=== PATIENT | male | born 1940 | race Caucasian/White ===

== ENCOUNTER 2018-05-11 08:52 | Emergency (ER) | payer MEDICARE ==
[~2018-05-11] VITALS: Ht 172.7 cm; Wt 98.0 kg
[~2018-05-11 08:52] MED LIST: ACETAMINOPHEN325 M1 PO; ALPRAZOLAM0.5 M1 PO; AMOXICILLIN250 MG PO; ASPIR 8181 MG PO; BACTRIM DS TAB1 EACH PO; BUMETANIDE1 MG PO; BUSPIRONE HCL5 MG PO; CLINDAMYCIN HC300 MG PO; CLOPIDOGREL75 MG PO; CLOTRIMAZOLE-BE15 GM TOP; COUMADIN3 MG PO; FLONASE NS; FLONASE16 GM; FLUCONAZOLE100 MG PO; LAMISIL250 MG PO; LASIX20 MG PO; LEVAQUIN500 MG PO; LOSARTAN POTAS100 MG PO; LOTRISONE CREAM15 GM TOP; LOVENOX60 MG/0.6 SC; MACROBID 100 M100 MG PO; METOPROLOL TART25 MG PO; NITROGLYCERIN0.4 MG SL; NORCO 7.5-3251 EACH PO; PRAVASTATIN SOD40 MG PO; SENOKOT8.6 MG PO; SMZ/TMP DS 800-160 PO; TAMSULOSIN HCL0.4 MG PO; TERAZOSIN HCL5 MG PO; TRAMADOL PO; TYLENOL WITH C1 EACH PO; ULTRAM 50MG50 MG PO; WARFARIN SODIUM3 MG PO; WARFARIN SODIUM5 MG PO; XARELTO20 MG PO
[2018-05-11 10:24] LABS: CLARITY,URINE SL CLOUDY (CLEAR); COLOR,URINE YELLOW (YELLOW)
[2018-05-11 10:25] LABS: BACTERIA,URINE MODERATE /HPF; BILIRUBIN,URINE NEGATIVE (NEGATIVE); KETONES,URINE NEGATIVE (NEGATIVE); LEUKOCYTE ESTERASE ,URINE 2+ (NEGATIVE); NITRITE,URINE POSITIVE (NEGATIVE); PROTEIN,URINE DIPSTICK 1+ (NEGATIVE); RBC,URINE 21-50 /HPF (0-5); URINE UROBILINOGEN 0.2 mg/dL (0.2 - 1); WBC,URINE (MAN) >50 /HPF (0-5)
[2018-05-11] MEDS ORDERED: CEFTRIAXONE SOD 1 GM VIAL IM NR (10:45)
[2018-05-11 10:53] VITALS: BP 124/69
[2018-05-11] MEDS ORDERED: LIDOCAINE 1% 5ML-MPF INJ ONE (11:00)
[2018-05-11] MEDS ORDERED: LIDOCAINE HCL 1% 2 ML AMP ONE (11:07)
== END 2018-05-11 11:22 | disposition home or self-care (01) ==
LOC: ER 08:52
DX: R33.9 Retention of urine, unspecified (principal); N30.21 Other chronic cystitis with hematuria; N40.1 Benign prostatic hyperplasia with lower urinary tract symptoms
CPT/HCPCS: 81001; 87086; 87186; 99283; J0696; J2001

== ENCOUNTER 2018-08-22 13:59 | Emergency (ER) | payer MEDICARE ==
[~2018-08-22] VITALS: Ht 172.7 cm; Wt 101.2 kg
[2018-08-22 15:26] LABS: BILIRUBIN,URINE NEGATIVE (NEGATIVE); CLARITY,URINE HAZY (CLEAR); COLOR,URINE YELLOW (YELLOW); KETONES,URINE NEGATIVE (NEGATIVE); LEUKOCYTE ESTERASE ,URINE 2+ (NEGATIVE); NITRITE,URINE POSITIVE (NEGATIVE); PROTEIN,URINE DIPSTICK 2+ (NEGATIVE); URINE UROBILINOGEN 0.2 mg/dL (0.2 - 1)
[2018-08-22 15:41] LABS: WBC,URINE (MAN) 21-50 /HPF (0-5)
[2018-08-22 15:42] LABS: AMORPHOUS SEDIMENT,URINE FEW (FEW); BACTERIA,URINE MODERATE /HPF
[2018-08-22] MEDS ORDERED: CEFTRIAXONE SOD 1 GM VIAL IM NR (16:00)
[2018-08-22] MEDS ORDERED: LIDOCAINE HCL 1% LOCAL INJ 20 ML VIAL ONE (16:30)
[2018-08-22] MEDS ORDERED: LIDOCAINE 1% 5ML-MPF INJ ONE (16:30)
[2018-08-22 16:48] VITALS: BP 110/61
== END 2018-08-22 17:05 | disposition home or self-care (01) ==
LOC: ER 13:59
DX: R33.9 Retention of urine, unspecified (principal); N30.01 Acute cystitis with hematuria
CPT/HCPCS: 81001; 87086; 87186; 99283; J0696; J2001

== ENCOUNTER 2020-09-02 16:55 | Inpatient (IN) | payer MEDICARE ==
[~2020-09-02] VITALS: Ht 172.7 cm; Wt 93.9 kg
[2020-09-06 08:29] VITALS: BP 114/69
[2020-09-06] MEDS ORDERED: GABAPENTIN300 MG PO (09:08)
[2020-09-06] MEDS ORDERED: HIPREX1 GM PO (09:08)
[2020-09-06] MEDS ORDERED: ELIQUIS5 M1 PO (09:08)
[2020-09-06] MEDS ORDERED: LISINOPRIL10 MG PO (09:08)
[2020-09-06] MEDS ORDERED: ALEVE220 MG PO (09:12)
[2020-09-06 09:55] LABS: BASOPHILS % 0.4 % (0.0-1.0); EOSINOPHILS # (AUTO) 0.2 (0.0-0.4); EOSINOPHILS % 5.1 % (0.0-6.0); HEMATOCRIT 36.2 % (38.2-49.6); HEMOGLOBIN 11.3 g/dL (14.0-18.0); LYMPHOCYTES # (AUTO) 1.1 (1.0-3.2); LYMPHOCYTES % 23.7 % (18.0-39.1); MEAN CORPUSCULAR HEMOGLOBIN 26.3 pg (28-32); MEAN CORPUSCULAR HGB CONC 31.2 g/dL (31-35); MEAN CORPUSCULAR VOLUME 84.4 fL (81-99); MONOCYTES # (AUTO) 0.4 (0.2-0.8); MONOCYTES % 9.6 % (4.4-11.3); NEUTROPHILS # (AUTO) 2.7 (2.1-6.9); PLATELET COUNT 131 x10e3/uL (140-360); RED BLOOD COUNT 4.29 x10e6/uL (4.3-5.7); RED CELL DISTRIBUTION WIDTH 14.6 % (11.7-14.4)
[2020-09-06] MEDS ORDERED: VANCOMYCIN 1GM/NS 250 ML 250 ML IV SCH (10:00)
[2020-09-06 10:13] LABS: ALANINE AMINOTRANSFERASE 18 IU/L (0-55); ALBUMIN/GLOBULIN RATIO 1.4 (0.8-2.0); ALKALINE PHOSPHATASE 56 IU/L (40-150); ANION GAP 13.8 mmol/L (8-16); BLOOD UREA NITROGEN 18 mg/dL (7-26); BUN/CREATININE RATIO 16 (6-25); CALCIUM 9.5 mg/dL (8.4-10.2); CARBON DIOXIDE 27 mmol/L (22-29); CHLORIDE 104 mmol/L (98-107); CREATININE, SERUM 1.14 mg/dL (0.72-1.25); EST GLOMERULAR FILTRATION RATE > 60 ML/MIN (60-); GLUCOSE 128 mg/dL (74-118); POTASSIUM 3.8 mmol/L (3.5-5.1); SODIUM 141 mmol/L (136-145)
[2020-09-06 10:18] VITALS: BP 114/69
[2020-09-06 12:17] VITALS: BP 125/74
[2020-09-06] MEDS: CEFEPIME 1GM/NS 0.9% 50 ML 50 ML IV SCH (12:28)
[2020-09-06] MEDS ORDERED: SODIUM CHLORIDE 0.9% 250ML 250 ML ONE (12:35)
[2020-09-06 16:06] VITALS: BP 135/74
[2020-09-06] MEDS: GABAPENTIN 300 MG CAP PO SCH ×2 (16:19→20:09)
[2020-09-06] MEDS: METOPROLOL TARTRATE 25 MG TAB PO SCH (16:55)
[2020-09-06] MEDS: FUROSEMIDE 40 MG TAB PO SCH (20:09)
[2020-09-06] MEDS: TAMSULOSIN HCL 0.4 MG CAP PO SCH (20:09)
[2020-09-06 20:45] VITALS: BP 143/69
[2020-09-06 21:45] VITALS: BP 143/69
[2020-09-07] VITALS (7 sets, daily range): BP systolic 113–147; BP diastolic 60–73
[2020-09-07] MEDS: BUSPIRONE HCL 5 MG TAB PO SCH (11:13)
[2020-09-07] MEDS: PANTOPRAZOLE SOD 40 MG TABEC PO SCH (11:13)
[2020-09-07] MEDS: METOPROLOL TARTRATE 25 MG TAB PO SCH ×2 (11:14→16:39)
[2020-09-07] MEDS: LISINOPRIL 20 MG TAB PO SCH (11:14)
[2020-09-07] MEDS: GABAPENTIN 300 MG CAP PO SCH ×3 (11:14→20:54)
[2020-09-07] MEDS: CEFEPIME 1GM/NS 0.9% 50 ML 50 ML IV SCH (11:15)
[2020-09-07] MEDS: BALSAM PERU/CASTOR OIL 60 GM OINT...G. TP SCH (15:52)
[2020-09-07] MEDS: TAMSULOSIN HCL 0.4 MG CAP PO SCH (20:54)
[2020-09-07] MEDS: FUROSEMIDE 40 MG TAB PO SCH (20:54)
[2020-09-08] VITALS (11 sets, daily range): BP systolic 126–141; BP diastolic 62–82
[2020-09-08] MEDS: ACETAMINOPHEN 325 MG TAB PO PRN (02:58)
[2020-09-08] MEDS: GABAPENTIN 300 MG CAP PO SCH ×3 (11:31→20:54)
[2020-09-08] MEDS: PANTOPRAZOLE SOD 40 MG TABEC PO SCH (11:31)
[2020-09-08] MEDS: METOPROLOL TARTRATE 25 MG TAB PO SCH ×2 (11:31→17:35)
[2020-09-08] MEDS: BUSPIRONE HCL 5 MG TAB PO SCH (11:31)
[2020-09-08] MEDS: CEFEPIME 1GM/NS 0.9% 50 ML 50 ML IV SCH (11:32)
[2020-09-08] MEDS: BALSAM PERU/CASTOR OIL 60 GM OINT...G. TP SCH (11:32)
[2020-09-08] MEDS: LISINOPRIL 20 MG TAB PO SCH (11:32)
[2020-09-08] MEDS: VANCOMYCIN 1GM/NS 250 ML 250 ML IV SCH (17:55)
[2020-09-08] MEDS: TAMSULOSIN HCL 0.4 MG CAP PO SCH (20:54)
[2020-09-08] MEDS: FUROSEMIDE 40 MG TAB PO SCH (20:54)
[2020-09-09] MEDS: ACETAMINOPHEN 325 MG TAB PO PRN (01:40)
[2020-09-09 04:59] VITALS: BP 124/72
[2020-09-09] MEDS: VANCOMYCIN 1GM/NS 250 ML 250 ML IV SCH ×2 (05:02→17:22)
[2020-09-09] MEDS ORDERED: TRAMADOL HCL 50 MG TAB PO PRN (05:15)
[2020-09-09] MEDS ORDERED: ZOLPIDEM TARTRATE 10 MG TAB PO PRN (05:15)
[2020-09-09 08:11] VITALS: BP 150/63
[2020-09-09 08:13] VITALS: BP 150/63
[2020-09-09] MEDS: PANTOPRAZOLE SOD 40 MG TABEC PO SCH (08:39)
[2020-09-09] MEDS: BUSPIRONE HCL 5 MG TAB PO SCH (08:39)
[2020-09-09] MEDS: BALSAM PERU/CASTOR OIL 60 GM OINT...G. TP SCH (08:40)
[2020-09-09] MEDS: METOPROLOL TARTRATE 25 MG TAB PO SCH ×2 (08:40→17:22)
[2020-09-09] MEDS: CEFEPIME 1GM/NS 0.9% 50 ML 50 ML IV SCH (08:40)
[2020-09-09] MEDS: LISINOPRIL 20 MG TAB PO SCH (08:40)
[2020-09-09] MEDS: GABAPENTIN 300 MG CAP PO SCH ×2 (08:40→17:22)
[2020-09-09 11:41] VITALS: BP 120/67
[2020-09-09 11:55] VITALS: BP 150/63
[2020-09-09 15:58] VITALS: BP 143/79
[2020-09-09] MEDS ORDERED: CIPRO500 MG PO ×2 (18:05→18:06)
[2020-09-09] MEDS ORDERED: DOXYCYCLINE HY100 MG PO ×2 (18:05→18:06)
== END 2020-09-09 18:48 | disposition home or self-care (01) | DRG 603 ==
LOC: MED/SURG2 09-06 07:34
PROVIDERS: ADMIT Internal Medicine; ATTEND Internal Medicine
DX: L03.116 Cellulitis of left lower limb (principal); I12.9 Hypertensive chronic kidney disease with stage 1 through stage 4 chronic kidney disease, or unspecified chronic kidney disease; N18.30 Chronic kidney disease, stage 3 unspecified; K21.9 Gastro-esophageal reflux disease without esophagitis; N40.0 Benign prostatic hyperplasia without lower urinary tract symptoms; F41.9 Anxiety disorder, unspecified; Z95.820 Peripheral vascular angioplasty status with implants and grafts; Z11.59 Encounter for screening for other viral diseases; D63.1 Anemia in chronic kidney disease; E66.9 Obesity, unspecified; Z68.31 Body mass index [BMI] 31.0-31.9, adult
CPT/HCPCS: 36415; 80053; 85025; 85651; 86140; 87040; 87086; 93925; 99251; J0692; J3370; J7050; U0002

== ENCOUNTER 2021-11-05 13:35 | Emergency (ER) | payer MEDICARE ==
[~2021-11-05] VITALS: Ht 172.7 cm; Wt 96.2 kg
[~2021-11-05 13:35] MED LIST changes: +ALEVE220 MG PO; +CIPRO500 MG PO; +DOXYCYCLINE HY100 MG PO; +ELIQUIS5 M1 PO; +GABAPENTIN300 MG PO; +HIPREX1 GM PO; +LISINOPRIL10 MG PO
[2021-11-05 15:05] VITALS: BP 114/72
== END 2021-11-05 15:08 | disposition home or self-care (01) ==
LOC: FSED 13:52 → ER 15:08
DX: Z46.6 Encounter for fitting and adjustment of urinary device (principal); R33.9 Retention of urine, unspecified; I10 Essential (primary) hypertension; E78.5 Hyperlipidemia, unspecified; I50.9 Heart failure, unspecified; F41.9 Anxiety disorder, unspecified; Z96.642 Presence of left artificial hip joint
CPT/HCPCS: 99282

== ENCOUNTER 2025-08-05 11:39 | Emergency (ER) | payer MEDICARE ==
[~2025-08-05] VITALS: Ht 172.7 cm; Wt 96.2 kg
[2025-08-05 11:45] VITALS: PULSE 76; RESP 18; TEMP 98.4; O2SAT 99
[2025-08-05] MEDS: HYDROCODONE/APAP 7.5MG-325MG 1 EA TAB PO ONE (13:26)
== END 2025-08-05 13:54 | disposition home or self-care (01) ==
LOC: ER 12:19
DX: N99.518 Other cystostomy complication (principal); I10 Essential (primary) hypertension; I50.9 Heart failure, unspecified; E78.5 Hyperlipidemia, unspecified; F41.9 Anxiety disorder, unspecified; Z96.642 Presence of left artificial hip joint
CPT/HCPCS: 99283